=== PATIENT | female | born 1945 | race Caucasian/White ===

== ENCOUNTER 2022-08-17 11:29 | Observation (INO) | payer MEDICARE ==
--- NOTE | 2022-08-17 11:53 | ED ---
General Adult HPI - General Chief complaint: Syncope Stated complaint: Doc sent in- heart issue/testing Time Seen by Provider: 08/17/22 11:38 Source: patient, RN/MD (Case was discussed with Dr. Warren prior to arrival), RN notes reviewed Mode of arrival: ambulatory Limitations: no limitations - History of Present Illness Initial comments: Patient is a pleasant 77-year-old female presenting to the emergency department with concerns for palpitations and syncopal episodes are lasting for episode was 2 days ago. Patient has had 3-4 episodes in the past couple of weeks. Patient does get associated palpitations with this as well as other times. Currently patient is symptom-free. No chest pain. No dyspnea. No abdominal or back pain. No history of similar symptoms previously. Patient did have recent negative stress test. Case was discussed with Dr. Warren who is still concern regarding her symptoms and feels patient needs further cardiac evaluation, possibly heart catheterization - Related Data Home Medications Medication Instructions Recorded Confirmed Atorvastatin Calcium 20 mg PO DAILY 08/17/22 08/17/22 Valsartan [Diovan] 320 mg PO DAILY 08/17/22 08/17/22 amLODIPine [Norvasc] 10 mg PO HS 08/17/22 08/17/22 cloNIDine HCL [Catapres] 0.1 mg PO Q6H PRN 08/17/22 08/17/22 Allergies Allergy/AdvReac Type Severity Reaction Status Date / Time No Known Allergies Allergy Verified 08/17/22 13:42 Review of Systems ROS Statement: Those systems with pertinent positive or pertinent negative responses have been documented in the HPI. ROS Other: All systems not noted in ROS Statement are negative. Constitutional: Denies: fever Eyes: Denies: eye pain ENT: Denies: ear pain Respiratory: Denies: cough, dyspnea Cardiovascular: Reports: as per HPI, palpitations, syncope Endocrine: Denies: fatigue Gastrointestinal: Denies: abdominal pain Genitourinary: Denies: dysuria Musculoskeletal: Denies: back pain Skin: Denies: rash Neurological: Denies: headache, weakness, confusion Past Medical History Past Medical History: Hyperlipidemia, Hypertension History of Any Multi-Drug Resistant Organisms: None Reported Past Surgical History: No Surgical Hx Reported Past Psychological History: No Psychological Hx Reported Smoking Status: Never smoker Past Alcohol Use History: None Reported Past Drug Use History: None Reported General Exam Limitations: no limitations General appearance: alert, in no apparent distress Head exam: Present: atraumatic, normocephalic Eye exam: Present: normal appearance, PERRL, EOMI ENT exam: Present: normal oropharynx Neck exam: Present: normal inspection Respiratory exam: Present: normal lung sounds bilaterally Cardiovascular Exam: Present: regular rate, normal rhythm, normal heart sounds Expanded Peripheral pulses: 2+: Radial (R), Radial (L), Dorsalis Pedis (R), Dorsalis Pedis (L) GI/Abdominal exam: Present: soft. Absent: tenderness, pulsatile mass Extremities exam: Present: normal inspection. Absent: pedal edema, calf tenderness Neurological exam: Present: alert, oriented X3, CN II-XII intact. Absent: motor sensory deficit Expanded Neurological exam: Present: protecting the airway Speech: Present: fluid speech Cranial nerves: EOM's Intact: Normal Motor strength exam: RUE: 5, LUE: 5, RLE: 5, LLE: 5 Eye Response: (4) open spontaneously Motor Response: (6) obeys commands Verbal Response: (5) oriented Psychiatric exam: Present: normal affect, normal mood Skin exam: Present: normal color Course Vital Signs 08/17/22 11:34 Temperature 97.6 F Pulse Rate 60 Respiratory 20 Rate Blood Pressure 143/87 O2 Sat by Pulse 99 Oximetry EKG Findings - EKG Results: EKG: interpreted by ERMD (Septal Q waves. LVH with repolarization change.), sinus rhythm, normal axis EKG shows: bradycardia Medical Decision Making - Medical Decision Making Was pt. sent in by a medical professional or institution (, PA, [employer], urgent care, hospital, or care home...) When possible be specific @ -Patient was sent in by Dr. Warren who is familiar with this patient and did call prior to arrival. Did you speak to anyone other than the patient for history (EMS, parent, family, police, friend...)? What history was obtained from this source @ -Dr. Warren did provide history including recent testing Did you review nursing and triage notes (agree or disagree)? Why? @ -I reviewed and agree with nursing and triage notes Were old charts reviewed (outside hosp., previous admission, EMS record, old EKG, old radiological studies, urgent care reports/EKG's, care home records)? Report findings @ -No old charts were reviewed Differential Diagnosis (chest pain, altered mental status, abdominal pain women, abdominal pain men, vaginal bleeding, weakness, fever, dyspnea, syncope, headac he, dizziness, GI bleed, back pain, seizure, CVA, palpatations, mental health)? @ -Differential Syncope: Valvular disease, hypertrophic cardiomyopathy, pulmonary embolism, tamponade, tachycardia, bradycardia, MS, hypovolemia, hemorrhage, dissection, anemia, intracranial hemorrhage, seizure, hypoglycemia, carbon monoxide poisoning, this is not meant to be an all-inclusive list. EKG interpreted by me (3pts min.). @ -As above X-rays interpreted by me (1pt min.). @ -Chest x-ray shows scoliosis. Borderline cardiomegaly CT interpreted by me (1pt min.). @ -None done U/S interpreted by me (1pt. min.). @ -None done What testing was considered but not performed or refused? (CT, X-rays, U/S, labs)? Why? @ -None What meds were considered but not given or refused? Why? @ -None Did you discuss the management of the patient with other professionals (professionals i.e. , PA, [employer], lab, RT, psych nurse, social media senior associate, supervisor pairing and inspecting, teacher, community resource officer, director of casework services)? Give summary @ -Case was discussed with Dr. Warren who does want his patient admitted with cardiology consult Was smoking cessation discussed for >3mins.? @ -No Was critical care preformed (if so, how long)? @ -No Were there social determinants of health that impacted care today? How? (Homelessness, low income, unemployed, alcoholism, drug addiction, tr ansportation, low edu. Level, literacy, decrease access to med. care, [facility], rehab)? @ -No Was there de-escalation of care discussed even if they declined (Discuss DNR or withdrawal of care, Hospice)? DNR status @ -No What co-morbidities impacted this encounter? (DM, HTN, Smoking, COPD, CAD, Cancer, CVA, ARF, Chemo, Hep., AIDS, mental health diagnosis, sleep apnea, morbid obesity)? @ -None Was patient admitted / discharged? Hospital course, mention meds given and route, prescriptions, significant lab abnormalities, going to OR and other pertinent info. @ -Patient reevaluated and updated. Patient is made aware of plan of admission and cardiac consult. Undiagnosed new problem with uncertain prognosis? @ -No Drug Therapy requiring intensive monitoring for toxicity (Heparin, Nitro, Insulin, Cardizem)? @ -No Were any procedures done? @ -No Diagnosis/symptom? @ -Recurrent syncope Acute, or Chronic, or Acute on Chronic? @ -Acute Uncomplicated (without systemic symptoms) or Complicated (systemic symptoms)? @ -default Side effects of treatment? @ -No Exacerbation, Progression, or Severe Exacerbation? @ -No Poses a threat to life or bodily function? How? (Chest pain, USA, MS, pneumonia, PE, COPD, DKA, ARF, appy, cholecystitis, CVA, Diverticulitis, Homicidal, Suicidal, threat to staff... and all critical care pts) @ -No - Lab Data Result diagrams: 08/17/22 12:29 08/17/22 12:29 Lab Results 08/17/22 08/17/22 08/17/22 Range/Units 12:29 12:29 12:29 WBC 5.9 (3.8-10.6) k/uL RBC 4.62 (3.80-5.40) m/uL Hgb 14.4 (11.4-16.0) gm/dL Hct 41.5 (34.0-46.0) % MCV 89.8 (80.0-100.0) fL MCH 31.2 (25.0-35.0) pg MCHC 34.7 (31.0-37.0) g/dL RDW 12.5 (11.5-15.5) % Plt Count 217 (150-450) k/uL MPV 9.3 Neutrophils % 70 % Lymphocytes % 22 % Monocytes % 6 % Eosinophils % 0 % Basophils % 0 % Neutrophils # 4.1 (1.3-7.7) k/uL Lymphocytes # 1.3 (1.0-4.8) k/uL Monocytes # 0.4 (0-1.0) k/uL Eosinophils # 0.0 (0-0.7) k/uL Basophils # 0.0 (0-0.2) k/uL PT 10.5 (9.0-12.0) sec INR 1.0 (<1.2) APTT 23.2 (22.0-30.0) sec D-Dimer 0.26 (<0.60) mg/L FEU Sodium 137 (137-145) mmol/L Potassium 4.3 (3.5-5.1) mmol/L Chloride 97 L (98-107) mmol/L Carbon Dioxide 28 (22-30) mmol/L Anion Gap 12 mmol/L BUN 23 H (7-17) mg/dL Creatinine 1.06 H (0.52-1.04) mg/dL Est GFR (CKD-EPI)AfAm 58 (>60 ml/min/1.73 sqM) Est GFR (CKD-EPI)NonAf 51 (>60 ml/min/1.73 sqM) Glucose 109 H (74-99) mg/dL Calcium 10.0 (8.4-10.2) mg/dL Magnesium 1.9 (1.6-2.3) mg/dL Total Bilirubin 0.6 (0.2-1.3) mg/dL AST 36 (14-36) U/L ALT 44 H (4-34) U/L Alkaline Phosphatase 92 (38-126) U/L Troponin I (0.000-0.034) ng/mL Total Protein 8.0 (6.3-8.2) g/dL Albumin 4.8 (3.5-5.0) g/dL TSH 2.620 (0.465-4.680) mIU/L Free T4 1.15 (0.78-2.19) ng/dL Free T3 pg/mL 4.3 (2.8-5.3) pg/ml 08/17/22 Range/Units 12:29 WBC (3.8-10.6) k/uL RBC (3.80-5.40) m/uL Hgb (11.4-16.0) gm/dL Hct (34.0-46.0) % MCV (80.0-100.0) fL MCH (25.0-35.0) pg MCHC (31.0-37.0) g/dL RDW (11.5-15.5) % Plt Count (150-450) k/uL MPV Neutrophils % % Lymphocytes % % Monocytes % % Eosinophils % % Basophils % % Neutrophils # (1.3-7.7) k/uL Lymphocytes # (1.0-4.8) k/uL Monocytes # (0-1.0) k/uL Eosinophils # (0-0.7) k/uL Basophils # (0-0.2) k/uL PT (9.0-12.0) sec INR (<1.2) APTT (22.0-30.0) sec D-Dimer (<0.60) mg/L FEU Sodium (137-145) mmol/L Potassium (3.5-5.1) mmol/L Chloride (98-107) mmol/L Carbon Dioxide (22-30) mmol/L Anion Gap mmol/L BUN (7-17) mg/dL Creatinine (0.52-1.04) mg/dL Est GFR (CKD-EPI)AfAm (>60 ml/min/1.73 sqM) Est GFR (CKD-EPI)NonAf (>60 ml/min/1.73 sqM) Glucose (74-99) mg/dL Calcium (8.4-10.2) mg/dL Magnesium (1.6-2.3) mg/dL Total Bilirubin (0.2-1.3) mg/dL AST (14-36) U/L ALT (4-34) U/L Alkaline Phosphatase (38-126) U/L Troponin I <0.012 (0.000-0.034) ng/mL Total Protein (6.3-8.2) g/dL Albumin (3.5-5.0) g/dL TSH (0.465-4.680) mIU/L Free T4 (0.78-2.19) ng/dL Free T3 pg/mL (2.8-5.3) pg/ml Disposition Clinical Impression: Syncope Disposition: ADMITTED IP TO THIS [facility] Is patient prescribed a controlled substance at d/c from ED?: No Referrals: Yamila Warren MD [Primary Care Provider] - 1-2 days Time of Disposition: 13:59
--- NOTE | 2022-08-17 12:47 | XR ---
EXAMINATION TYPE: XR chest 2V DATE OF EXAM: 08/17/2022 COMPARISON: None HISTORY: 77-year-old female syncope TECHNIQUE: PA and lateral views FINDINGS: Heart borderline enlarged. Aorta and pulmonary vasculature within normal limits. Focal levoconvex sco liosis upper third thoracic spine. Hyperinflation. No consolidation or pleural effusion. IMPRESSION: COPD. Borderline cardiomegaly. Levoconvex scoliosis upper thoracic spine. No acute process seen.
[2022-08-17 12:55] LABS: Partial Thromboplastin Time 23.2 sec (22.0-30.0); Prothrombin Time 10.5 sec (9.0-12.0)
[2022-08-17 13:00] LABS: Basophils % (A) 0 %; Eosinophils % (A) 0 %; HCT 41.5 % (34.0-46.0); HGB 14.4 gm/dL (11.4-16.0); Lymphocytes # (A) 1.3 k/uL (1.0-4.8); Lymphocytes % (A) 22 %; MCH 31.2 pg (25.0-35.0); MCHC 34.7 g/dL (31.0-37.0); MCV 89.8 fL (80.0-100.0); Mean Platelet Volume 9.3; Monocytes # (A) 0.4 k/uL (0-1.0); Monocytes % (A) 6 %; Neutrophils # (A) 4.1 k/uL (1.3-7.7); Neutrophils % (A) 70 %; Platelet Count 217 k/uL (150-450); RBC 4.62 m/uL (3.80-5.40); RDW 12.5 % (11.5-15.5); WBC 5.9 k/uL (3.8-10.6)
[2022-08-17 13:08] LABS: Albumin 4.8 g/dL (3.5-5.0); Magnesium 1.9 mg/dL (1.6-2.3); Potassium 4.3 mmol/L (3.5-5.1); Total Bilirubin 0.6 mg/dL (0.2-1.3)
[2022-08-17 13:25] LABS: T4, Free (Free Thyroxine) 1.15 ng/dL (0.78-2.19)
[2022-08-17] MEDS ORDERED: NALOXONE 0.4 MG/ML 1 ML VIAL IV PRN (14:01)
--- NOTE | 2022-08-17 20:16 | US ---
EXAMINATION TYPE: US carotid duplex BILAT DATE OF EXAM: 08/17/2022 COMPARISON: NONE CLINICAL INDICATION: Female, 77 years old with history of syncope; syncope TECHNIQUE: Carotid duplex ultrasound examination. Indirect Doppler criteria was utilized. FINDINGS: EXAM MEASUREMENTS: RIGHT: Peak Systolic Velocity (PSV) cm/sec ----- Right CCA: 80.8 ----- Right ICA: 123.8 ----- Right ECA: 131.7 ICA/CCA ratio: 1.5 RIGHT: End Diastole cm/sec ----- Right CCA: 11.0 ----- Right ICA: 22.0 ----- Right ECA: 0.0 LEFT: Peak Systolic Velocity (PSV) cm/sec ----- Left CCA: 66.9 ----- Left ICA: 83.2 ----- Left ECA: 97.7 ICA/CCA ratio: 1.2 LEFT: End Diastole cm/sec ----- Left CCA: 14.0 ----- Left ICA: 21.0 ----- Left ECA: 0.0 VERTEBRALS (direction of flow): Right Vertebral: Antegrade Left Vertebral: Antegrade Rhythm: Normal AUDITOR/QUALITY NOTES: Mild plaque seen in bilateral bulbs IMPRESSION: Less than 50% stenosis of the bilateral carotid bifurcations. Criteria for Assigning % of Stenosis / Diameter reduction (Estimation based on the indirect measurements of the internal carotid artery velocities (ICA PSV). 1. Normal (no stenosis)=ICA PSV < 125 cm/s: ratio < 2.0: ICA EDV<40 cm/s. 2. Less than 50% stenosis=ICA PSV < 125 cm/s: ratio < 2.0: ICA EDV<40 cm/s. 3. 50 to 69% stenosis=ICA PSV of 125 to 230 cm/s: ration 2.0 ? 4.0: ICA EDV 40-100 cm/s. 4. Greater than 70% stenosis to near occlusion= ICA PSV > 230 cm/s: ratio > 4.0: ICA EDV > 100 cm/s. 5. Near occlusion= ICA PSV velocities may be low or undetectable: variable ratio and ICA EDV. 6. Total occlusion=unable to detect flow.
[2022-08-17] MEDS ORDERED: amLODIPine 10 MG TAB PO SCH (21:00)
[2022-08-17] MEDS ORDERED: ATORVASTATIN 20 MG TAB PO SCH (21:00)
--- NOTE | 2022-08-18 07:36 | CA ---
Transthoracic Echo Report Name: Soniya Calderon Age: 77 Gender: F : 1945 Exam Date: 08/17/2022 16:20 Exam Location: [place] [facility] Ht (in): 64 Wt (lb): 131 Ordering Physician: Shane Davis DO Attending/Referring Phys: Draw Hand Abena Flores RDCS Procedure CPT: Indications: Syncope Cardiac Hx: Technical Quality: Excellent Contrast 1: Total Dose (mL): Contrast 2: Total Dose (mL): MEASUREMENTS (Male / Female) Normal Values 2D ECHO LV Diastolic Diameter PLAX 3.9 cm 4.2 - 5.9 / 3.9 - 5.3 cm LV Systolic Diameter PLAX 2.4 cm IVS Diastolic Thickness 1.2 cm 0.6 - 1.0 / 0.6 - 0.9 cm LVPW Diastolic Thickness 1.0 cm 0.6 - 1.0 / 0.6 - 0.9 cm LV Relative Wall Thickness 0.6 RV Internal Dim ED PLAX 3.4 cm LA Systolic Diameter LX 2.9 cm 3.0 - 4.0 / 2.7 - 3.8 cm LA Volume 39.5 cm??? 18 - 58 / 22 - 52 cm??? M-MODE Aortic Root Diameter MM 3.1 cm MV E Point Septal Separation 0.3 cm AV Cusp Separation MM 2.0 cm DOPPLER AV Peak Velocity 126.1 cm/s AV Peak Gradient 6.4 mmHg AI Peak Velocity 444.5 cm/s AI Peak Gradient 79.0 mmHg AI Pressure Half Time 803.5 ms MV Area PHT 3.9 cm??? Mitral E Point Velocity 78.7 cm/s Mitral A Point Velocity 60.8 cm/s Mitral E to A Ratio 1.3 MV Deceleration Time 193.9 ms MV E' Velocity 7.3 cm/s Mitral E to MV E' Ratio 10.7 TR Peak Velocity 257.4 cm/s TR Peak Gradient 26.5 mmHg Right Ventricular Systolic Press 30.9 mmHg FINDINGS Left Ventricle Left ventricular ejection fraction is estimated at 55-60 %. Left ventricular cavity size normal. Mildly increased septal wall thickness. Mildly increased posterior wall thickness. Right Ventricle Mild right ventricular dilatation. Right ventricular systolic pressure within normal limits. Right ventricular systolic pressure estimated at 31 mm hg. Right Atrium Normal right atrial size. Left Atrium Normal left atrial size. Mitral Valve Structurally normal mitral valve. Mild mitral regurgitation. Aortic Valve Trileaflet aortic valve. Mild aortic regurgitation. Tricuspid Valve Structurally normal tricuspid valve. Moderate tricuspid regurgitation. Pulmonic Valve Structurally normal pulmonic valve. Trace pulmonic regurgitation. Pericardium Normal pericardium. No pericardial effusion. Aorta Normal size aortic root and proximal ascending aorta. CONCLUSIONS 1. Normal left ventricular size and systolic function 2. Mild mitral and aortic regurgitation 3. Moderate tricuspid regurgitation with normal right ventricular systolic pressure Previewed by: Dr. Rosa Coyle MD (Electronically Signed) Final Date: 18 Aug 2022 07:34
[2022-08-18] MEDS ORDERED: DOBUTamine DRIP for NUC MED 500 MG in DEXTROSE/WATER 1 250ML.BAG IV PRN (08:30)
[2022-08-18] MEDS ORDERED: VALSARTAN 160 MG TAB PO SCH (09:00)
[2022-08-18] MEDS ORDERED: CHLORTHALIDONE 25 MG TAB PO SCH (09:00)
[2022-08-18] MEDS ORDERED: atenoloL 25 MG TAB PO SCH (09:00)
[2022-08-18] MEDS ORDERED: NON FORMULARY DRUG (Atenolol/Chlorthalidone [Atenolol/Chlorthalidone 50-25] 1 EACH Tablet) PO SCH (09:00)
[2022-08-18] MEDS ORDERED: ASPIRIN 81 MG PO SCH (09:00)
[2022-08-18 09:07] LABS: Basophils # (A) 0.03 X 10*3/uL (0.00-0.10); Basophils % (A) 0.6 %; Eosinophils # (A) 0.13 X 10*3/uL (0.04-0.35); Eosinophils % (A) 2.8 %; HCT 37.5 % (37.2-46.3); HGB 12.7 g/dL (12.0-15.0); Immature Grans, Automated 0 %; Lymphocytes % (A) 40.3 %; MCH 30.8 pg (27.0-32.0); MCHC 33.9 g/dL (32.0-37.0); MCV 90.8 fL (80.0-97.0); Mean Platelet Volume 10.7 fL (9.5-12.2); Monocytes # (A) 0.67 X 10*3/uL (0.20-1.00); Monocytes % (A) 14.2 %; NRBC Per 100 WBC 0 /100 WBCS (0.0-0.0); Neutrophils # (A) 1.98 X 10*3/uL (1.80-7.70); Neutrophils % (A) 42.1 %; Platelet Count 202 X 10*3/uL (140-440); RBC 4.13 X 10*6/uL (4.10-5.20); RDW 12.2 % (11.5-14.5); WBC 4.71 X 10*3/uL (4.50-10.00)
[2022-08-18 10:01] LABS: African American GFR (CKD) 62.5 (60.0-200.0); Albumin 4.1 g/dL (3.8-4.9); Albumin/Globulin Ratio 1.95 (1.60-3.17); Anion Gap 11.1 mmol/L (10.00-18.00); Calcium 9.7 mg/dL (8.7-10.3); Carbon Dioxide 25.9 mmol/L (20.0-27.5); Globulin 2.1 g/dL (1.6-3.3); Non-African American GFR(CKD) 53.9 (60.0-200.0); Total Bilirubin 0.3 mg/dL (0.30-1.20); Total Protein 6.2 g/dL (6.2-8.2)
[2022-08-18] MEDS: CHOLECALCIFEROL 25 MCG (1000 IU) TABLET PO SCH ×2 (10:28→10:30)
--- NOTE | 2022-08-18 10:35 | P.CRDCN ---
History of Present Illness Consult date: 08/18/22 Requesting physician: Yamila Warren Reason for Consult (text): syncope Chief complaint: syncope History of present illness: This is a pleasant 77-year-old female patient who does not follow with ca rdiologist. She has a history of hypertension and hyperlipidemia. She did have cardiac workup including echocardiogram and stress test done at [facility] early last year that were apparently unremarkable. She presents to the hospital as advised by her primary care physician. In June she had 2 episodes of passing out while seated. One episode was witnessed and lasted about 30 seconds. She denies any symptoms prior to the events and denies any loss of bowel or bladder confusion after coming to. She had another episode a few days ago that was brief and similar to the episodes in June. She went to see her primary care physician who recommended she come to the emergency department for further evaluation. Echocardiogram with Doppler study showed normal LV systolic function with mild MR, mild AI and moderate TR. Troponins have been negative 3. Carotid duplex study showed less than 50% stenosis bilaterally. Vital signs have been stable. Past Medical History Past Medical History: Cancer, Hyperlipidemia, Hypertension Additional Past Medical History / Comment(s): Colon cancer. History of Any Multi-Drug Resistant Organisms: None Reported Past Surgical History: Bowel Resection Past Anesthesia/Blood Transfusion Reactions: No Reported Reaction Past Psychological History: No Psychological Hx Reported Smoking Status: Never smoker Past Alcohol Use History: None Reported Past Drug Use History: None Reported Medications and Allergies Home Medications Medication Instructions Recorded Confirmed Type Aspirin 81 mg PO DAILY 08/17/22 08/17/22 History Atenolol/Chlorthalidone 0.5 each PO DAILY 08/17/22 08/17/22 History [Atenolol/Chlorthalidone 50-25] Atorvastatin Calcium 20 mg PO HS 08/17/22 08/17/22 History Cholecalciferol [Vitamin D3 (25 100 mcg PO DAILY 08/17/22 08/17/22 History Mcg = 1000 Iu)] Multivitamin [Multivitamins Adult 08/17/22 History Gummies] Valsartan [Diovan] 320 mg PO DAILY 08/17/22 08/17/22 History Allergies Allergy/AdvReac Type Severity Reaction Status Date / Time No Known Allergies Allergy Verified 08/17/22 13:42 Physical Exam Vitals: Vital Signs Temp Pulse Pulse Pulse Pulse Pulse Resp 08/18/22 07:00 98.0 F 61 16 08/18/22 02:00 98.3 F 63 15 08/17/22 20:00 98.1 F 64 67 60 17 08/17/22 18:27 78 18 08/17/22 16:00 58 L 18 08/17/22 15:00 56 L 18 08/17/22 11:34 97.6 F 60 20 BP BP BP BP BP Pulse Ox 08/18/22 07:00 122/63 100 08/18/22 02:00 132/71 99 08/17/22 20:00 135/73 118/69 157/70 99 08/17/22 18:27 140/84 99 08/17/22 16:00 145/68 99 08/17/22 15:00 142/118 98 08/17/22 11:34 143/87 99 Intake and Output 08/17/22 08/18/22 08/18/22 22:59 06:59 14:59 Intake Total 0 Balance 0 Intake: Oral 0 Other: Voiding Method Toilet # Voids 1 2 Weight 59.421 kg Results 08/18/22 05:47 08/18/22 05:47 Cardiac Enzymes 08/17/22 08/17/22 08/17/22 Range/Units 12:29 12:29 16:03 AST 36 (14-36) U/L Troponin I <0.012 <0.012 (0.000-0.034) ng/mL 08/17/22 08/18/22 Range/Units 20:31 05:47 AST 24 (14-36) U/L Troponin I <0.012 (0.000-0.034) ng/mL Coagulation 08/17/22 Range/Units 12:29 PT 10.5 (9.0-12.0) sec APTT 23.2 (22.0-30.0) sec CBC 08/17/22 08/18/22 Range/Units 12:29 05:47 WBC 5.9 4.71 (3.8-10.6) k/uL RBC 4.62 4.13 (3.80-5.40) m/uL Hgb 14.4 12.7 (11.4-16.0) gm/dL Hct 41.5 37.5 (34.0-46.0) % Plt Count 217 202 (150-450) k/uL Comprehensive Metabolic Panel 08/17/22 08/18/22 Range/Units 12:29 05:47 Sodium 137 139 (137-145) mmol/L Potassium 4.3 4.0 (3.5-5.1) mmol/L Chloride 97 L 102 (98-107) mmol/L Carbon Dioxide 28 25.9 (22-30) mmol/L BUN 23 H 22.0 (7-17) mg/dL Creatinine 1.06 H 1.0 (0.52-1.04) mg/dL Glucose 109 H 100 (74-99) mg/dL Calcium 10.0 9.7 (8.4-10.2) mg/dL AST 36 24 (14-36) U/L ALT 44 H 34 (4-34) U/L Alkaline Phosphatase 92 77 (38-126) U/L Total Protein 8.0 6.2 (6.3-8.2) g/dL Albumin 4.8 4.1 (3.5-5.0) g/dL Current Medications Generic Name Dose Route Start Last Admin Trade Name Freq PRN Reason Stop Dose Admin Amlodipine Besylate 10 mg 08/17/22 21:00 08/17/22 21:44 Amlodipine 10 Mg Tab PO 10 mg HS LUBA Administration Aspirin 81 mg 08/18/22 09:00 Aspirin 81 Mg PO DAILY [facility] Atenolol 25 mg 08/18/22 09:00 Atenolol 25 Mg Tab PO DAILY [facility] Atorvastatin Calcium 20 mg 08/17/22 21:00 08/17/22 20:38 Atorvastatin 20 Mg Tab PO 20 mg HS LUBA Administration Chlorthalidone 12.5 mg 08/18/22 09:00 Chlorthalidone 25 Mg Tab PO DAILY [facility] Cholecalciferol 100 mcg 08/18/22 09:00 Cholecalciferol 25 Mcg (1000 Iu) Tablet PO DAILY [facility] Naloxone HCl 0.2 mg 08/17/22 14:01 Naloxone 0.4 Mg/Ml 1 Ml Vial IV Q2M PRN Opioid Reversal Valsartan 160 mg 08/18/22 09:00 Valsartan 160 Mg Tab PO DAILY [facility] Intake and Output 08/17/22 08/18/22 08/18/22 22:59 06:59 14:59 Intake Total 0 Balance 0 Intake: Oral 0 Other: Voiding Method Toilet # Voids 1 2 Weight 59.421 kg 08/18/22 05:47 08/18/22 05:47
--- NOTE | 2022-08-18 11:29 | P.CRDCN ---
History of Present Illness Consult date: 08/18/22 Requesting physician: Berhane E Ilir Reason for Consult (text): syncope Chief complaint: syncope History of present illness: This is a pleasant 77-year-old female patient who does not follow with a forensic technician. She has a history of hypertension and hyperlipidemia. He denies a history of diabetes and has no documented CAD. She did have cardiac workup including a stress test and echocardiogram done at [facility] early last year that were according to her unremarkable. She presents to the hospital as advised by her primary care physician. In June she had 2 episodes of passing out while seated. One episode was witnessed and lasted about 30 seconds. She denies any symptoms prior to the events and denies any loss of bowel or bladder control or confusion after coming to. She had another episode a few days ago that was brief and similar to the episodes in June. She went to see her primary care physician who recommended she come to the emergency department for further evaluation. Echocardiogram with Doppler study showed normal LV systolic function with mild MR, mild AI and moderate TR. Troponins have been negative 3. EKG shows sinus mechanism with possible prior [place] and possible LVH but no signs of acute ischemia. There's been no significant bradycardia or tachyarrhythmias noted on telemetry. Carotid duplex study showed less than 50% stenosis bilaterally. Vital signs have been stable. She's had no complaints of shortness of breath or chest discomfort. She walked up and down 6 flights of stairs on Monday without difficulty. She's had no orthopnea or PND. She does have occasional palpitations that are occurring every few months and not correlating with her episodes of syncope. Past Medical History Past Medical History: Cancer, Hyperlipidemia, Hypertension Additional Past Medical History / Comment(s): Colon cancer. History of Any Multi-Drug Resistant Organisms: None Reported Past Surgical History: Bowel Resection Past Anesthesia/Blood Transfusion Reactions: No Reported Reaction Past Psychological History: No Psychological Hx Reported Smoking Status: Never smoker Past Alcohol Use History: None Reported Past Drug Use History: None Reported Medications and Allergies Home Medications Medication Instructions Recorded Confirmed Type Aspirin 81 mg PO DAILY 08/17/22 08/17/22 History Atenolol/Chlorthalidone 0.5 each PO DAILY 08/17/22 08/17/22 History [Atenolol/Chlorthalidone 50-25] Atorvastatin Calcium 20 mg PO HS 08/17/22 08/17/22 History Cholecalciferol [Vitamin D3 (25 100 mcg PO DAILY 08/17/22 08/17/22 History Mcg = 1000 Iu)] Multivitamin [Multivitamins Adult 08/17/22 History Gummies] Valsartan [Diovan] 320 mg PO DAILY 08/17/22 08/17/22 History Allergies Allergy/AdvReac Type Severity Reaction Status Date / Time No Known Allergies Allergy Verified 08/17/22 13:42 Physical Exam Vitals: Vital Signs Temp Pulse Pulse Pulse Pulse Pulse Resp 08/18/22 07:00 98.0 F 61 16 08/18/22 02:00 98.3 F 63 15 08/17/22 20:00 98.1 F 64 67 60 17 08/17/22 18:27 78 18 08/17/22 16:00 58 L 18 08/17/22 15:00 56 L 18 08/17/22 11:34 97.6 F 60 20 BP BP BP BP BP Pulse Ox 08/18/22 07:00 122/63 100 08/18/22 02:00 132/71 99 08/17/22 20:00 135/73 118/69 157/70 99 08/17/22 18:27 140/84 99 08/17/22 16:00 145/68 99 08/17/22 15:00 142/118 98 08/17/22 11:34 143/87 99 Intake and Output 08/17/22 08/18/22 08/18/22 22:59 06:59 14:59 Intake Total 0 Balance 0 Intake: Oral 0 Other: Voiding Method Toilet # Voids 1 2 Weight 59.421 kg PHYSICAL EXAMINATION: This is a 77-year-old female in no apparent distress at the time of my examination. HEENT: Head is atraumatic, normocephalic. Pupils are equal, round. Sclerae anicteric. Conjunctivae are clear. Mucous membranes of the mouth are moist. Neck is supple. There is no elevated jugular venous pressure. No carotid bruit is heard. CHEST EXAMINATION: Clear to auscultation bilaterally. No wheezes rales or rhonchi. Respirations even and nonlabored. HEART EXAMINATION: Heart regular, positive S1 and S2. No S3. No S4. With a soft systolic murmur. ABDOMEN: Soft, nontender. Bowel sounds are heard. No organomegaly noted. EXTREMITIES: 2+ peripheral pulses with no evidence of peripheral edema and no calf tenderness noted. NEUROLOGIC EXAMINATION: Patient is awake, alert and oriented x3. Results 08/18/22 05:47 08/18/22 05:47 Cardiac Enzymes 08/17/22 08/17/22 08/17/22 Range/Units 12:29 12:29 16:03 AST 36 (14-36) U/L Troponin I <0.012 <0.012 (0.000-0.034) ng/mL 08/17/22 08/18/22 Range/Units 20:31 05:47 AST 24 (14-36) U/L Troponin I <0.012 (0.000-0.034) ng/mL Coagulation 08/17/22 Range/Units 12:29 PT 10.5 (9.0-12.0) sec APTT 23.2 (22.0-30.0) sec CBC 08/17/22 08/18/22 Range/Units 12:29 05:47 WBC 5.9 4.71 (3.8-10.6) k/uL RBC 4.62 4.13 (3.80-5.40) m/uL Hgb 14.4 12.7 (11.4-16.0) gm/dL Hct 41.5 37.5 (34.0-46.0) % Plt Count 217 202 (150-450) k/uL Comprehensive Metabolic Panel 08/17/22 08/18/22 Range/Units 12:29 05:47 Sodium 137 139 (137-145) mmol/L Potassium 4.3 4.0 (3.5-5.1) mmol/L Chloride 97 L 102 (98-107) mmol/L Carbon Dioxide 28 25.9 (22-30) mmol/L BUN 23 H 22.0 (7-17) mg/dL Creatinine 1.06 H 1.0 (0.52-1.04) mg/dL Glucose 109 H 100 (74-99) mg/dL Calcium 10.0 9.7 (8.4-10.2) mg/dL AST 36 24 (14-36) U/L ALT 44 H 34 (4-34) U/L Alkaline Phosphatase 92 77 (38-126) U/L Total Protein 8.0 6.2 (6.3-8.2) g/dL Albumin 4.8 4.1 (3.5-5.0) g/dL Current Medications Generic Name Dose Route Start Last Admin Trade Name Jm PRN Reason Stop Dose Admin Amlodipine Besylate 10 mg 08/17/22 21:00 08/17/22 21:44 Amlodipine 10 Mg Tab PO 10 mg HS LUBA Administration Aspirin 81 mg 08/18/22 09:00 08/18/22 10:28 Aspirin 81 Mg PO 81 mg DAILY LUBA Administration Atenolol 25 mg 08/18/22 09:00 Atenolol 25 Mg Tab PO DAILY LUBA Atorvastatin Calcium 20 mg 08/17/22 21:00 08/17/22 20:38 Atorvastatin 20 Mg Tab PO 20 mg HS LUBA Administration Chlorthalidone 12.5 mg 08/18/22 09:00 Chlorthalidone 25 Mg Tab PO DAILY LUBA Cholecalciferol 100 mcg 08/18/22 09:00 08/18/22 10:30 Cholecalciferol 25 Mcg (1000 Iu) Tablet PO 100 mcg DAILY LUBA Administration Naloxone HCl 0.2 mg 08/17/22 14:01 Naloxone 0.4 Mg/Ml 1 Ml Vial IV Q2M PRN Opioid Reversal Valsartan 160 mg 08/18/22 09:00 08/18/22 10:28 Valsartan 160 Mg Tab PO 160 mg DAILY LUBA Administration Intake and Output 08/17/22 08/18/22 08/18/22 22:59 06:59 14:59 Intake Total 0 Balance 0 Intake: Oral 0 Other: Voiding Method Toilet # Voids 1 2 Weight 59.421 kg 08/18/22 05:47 08/18/22 05:47 Assessment and Plan Assessment: #1 syncope of unclear etiology #2 hypertension #3 hyperlipidemia Plan: From cardiology's perspective will schedule patient for a stress echocardiogram. If there is no evidence of ischemia on the stress echo patient may be discharged home and follow-up in the office at which time we will likely schedule her for an event monitor. Further recommendations to follow. TOOL MAKER APPRENTICE note has been reviewed, I agree with a documented findings and plan of care. Patient was seen and examined.
--- NOTE | 2022-08-18 12:18 | CA ---
Stress Echo Report Soniya Calderon Age: 77 Gender: F : 1945 Exam Date: 08/18/2022 11:16 Exam Location: [facility] Ht (in): 64 Wt (lb): 131 Ordering Physician: Raven Pineda Referring Physician: [id number] Chun General Operator: Tammy Hazel RDCS Technologist Procedure CPT: Indication: Syncope ICD-9 Codes: Rhythm: Patient History: Dyspnea/SOB Cardiac Medications: Medications in past 24 hours: Contrast: Stress Results Protocol: Fausto Total dose(mL): Exercise Duration (min:sec): [address] Depression (mm): Angina Score: Arroyo Score: METS: 7.1 Resting HR: 81 Resting BP: 159 / 66 Peak HR: 127 Peak BP: 202 / 63 Max Predicted HR: 142 89 % Max Predicted HR Target HR: 121 Double Product: [id number] Stress Summary: The patient's target heart rate was achieved BP Response: Normal Reason for Termination: MAX EXERTION/TARGET HR Cardiac Symptoms: NO SYMPTOMS ECG Analysis Resting ECG: Normal sinus rhythm, Resting ST/T wave changes Stress ECG: Non-diagnostic ECG response due to resting abnormalities Arrhythmia: None Echo Analysis Resting Echo: Normal resting echocardiogram. Peak Echo Analysis: Normal wall thickening and motion with decrease in the cavity size MEASUREMENTS (Male/Female) Normal Values CONCLUSIONS 1. Good exercise tolerance with nondiagnostic echocardiographic stress testing secondary to baseline EKG abnormality 2. Normal stress echocardiogram with no evidence of stress induced ischemia Dr. Rosa Coyle MD (Electronically Signed) Final Date: 18 Aug 2022 12:17
[2022-08-18 14:33] VITALS: BP 120/73; PULSE 55; RESP 16; TEMP 97.8
--- NOTE | 2022-08-21 18:12 | P.HPIM ---
History of Present Illness H&P Date: 08/18/22 Chief Complaint: Syncope HISTORY OF PRESENT ILLNESS: This is a 77-year-old female with a previous medical history significant for hypertension and hypertensive cardio vascular disease, hyperlipidemia, history of osteophytes, history of malignant neoplasm of the co luis status post partial colectomy, patient has been recently having some issues with uncontrolled hypertension for which she has been having multiple hospital admissions patient ended up going for battery of testing including a calcium score that was positive for CAD, then underwent myocardial perfusion imaging was negative for stress-induced ischemia however there was a possible balance three-vessel ischemia patient apparently was doing better after adjusting some of her hypertensive medication, came to the office for follow-up, she stated that she had passed out while she was sitting on her chair on Monday that was 2 days prior to her office visit, patient had an EKG did not show evidence of acute of normalities, but because of the presentation I've asked the patient to go to the ER for evaluation by cardiology since there is a possibility of a three-vessel balance ischemia that when her myocardial perfusion imaging was negative, patient was admitted to hospital with cardiology consultation. REVIEW OF SYSTEMS: Constitutional: No documented fever, no chills, no night sweats. No weight change. No weakness, fatigue or lethargy. No daytime sleepiness. HEENT: No headache. No blurred vision or double vision, no loss of vision. No loss of Hearing, no ringing in the ears, no dizziness. No nasal drainage or congestion. No epistaxis. No sore throat. Lungs: positive for shortness of breath, no cough, no sputum production. No wheezing. Reports dyspnea with activity. Cardiovascular: No chest pain, minimal lower extremity edema. No palpitations. No paroxysmal nocturnal dyspnea. No orthopnea. No lightheadedness or dizziness. No syncopal episodes. Abdominal: Reports abdominal pain. No nausea, vomiting. No diarrhea. No constipation. No bloody or tarry stools reports loss of appetite. Genitourinary: No dysuria, increased frequency, urgency. No urinary retention. Musculoskeletal: No myalgias. No muscle weakness, no gait dysfunction, no frequent falls. No back pain. No neck pain. Integumentary: No wounds, no lesions. No rash or pruritus. No unusual brui sing. No change in hair or nails. Neurologic: No aphasia. No facial droop. No change in mentation. No head injury. No headache. No paralysis. No paresthesia.positive for syncope while sitting Psychiatric: No depression. No anxiety. No mood swings. Endocrine: No abnormal blood sugars. No weight change. PAST MEDICAL HISTORY: Hypertension and hypertensive cardiovascular disease. Hyperlipidemia. Malignant neoplasm of the colon. Vitamin D deficiency. Osteoarthritis PAST SURGICAL HISTORY: Sigmoidectomy due to colon cancer. Colonoscopy January 2020 Cataract surgery Left lumpectomy benign SOCIAL HISTORY: Patient is a lifelong nonsmoker, she'll occasionally drinks, she denies any drug use or abuse she lives alone per FAMILY HISTORY: Father at age of 65 from [place], mother at age of 68 from pancreatic cancer, patient had one brother who at the age of 86 from CABG as well as COPD, patient had 4 sisters one at age of 36 from lupus the other one at age of 76 from CAD and the other 2 are fine, patient has 2 sons no major medical problems. PHYSICAL EXAMINATION: General: 77-year-old female laying down in bed in no apparent distress HEENT: Head is atraumatic, normocephalic, pupils were equal round reactive to light and recommendation, extraocular muscle movement were intact, sclera nonicteric, conjunctivae were pale, mucous membranes of the mouth are somewhat dry. Neck: Supple, no JVP, normal carotid upstroke bilaterally, no lymphadenopathy. Chest: Decreased breath sounds at the bases, few rhonchi, no expiratory wheezes, no chest wall tenderness, no intercostal retractions. Heart: First heart sound is normal, second heart sounds normal there is GABBY 2/6 located at the left sternal borders. Abdomen: Soft, nontender, nondistended, positive bowel sounds. Extremities: There is no edema no calf tenderness DP +2 bilaterally. Neurologic examination: Patient is awake alert and oriented X 3, cranial nerves II-12 appear grossly intact, muscle power were 5 out of 5 in upper extremities and 5 out of 5 in bilateral lower extremities, deep tendon reflexes normal bilaterally. ASSESSMENT AND PLAN: 1. Syncope in a patient with uncontrolled hypertension with a myocardial perfusion imaging as an outpatient that was negative for stress-induced ischemia however it did show possibility of a balance ischemia with a slightly elevated TID, rule out cardiac arrhythmia since the patient passed out in the sitting position, patient will be admitted to telemetry unit, patient was seen in consultation by cardiology she is scheduled for dobutamine stress echo, if her stress test is negative she can be discharged home with follow-up with him as an outpatient for a 30 day event monitor. 2. Hypertension and hypertensive cardiovascular disease. Continue patient on valsartan 160 mg once every day, atenolol 50/12.5 mg half a tablet once every day, discontinue amlodipine for now. 3. Mixed hyperlipidemia. Continue atorvastatin 20 mg once every day, monitor lipid panel, keep LDL 55-70. 4. Vitamin D deficiency. Continue patient on vitamin D3 supplement 2000 units once every day. 5. DVT prophylaxis. Lovenox 40 mg subcutaneously every 24 hours. 6. GI prophylaxis. Continue patient on PPI. 7. Observation. 8. Full code. Past Medical History Past Medical History: Cancer, Hyperlipidemia, Hypertension Additional Past Medical History / Comment(s): Colon cancer. History of Any Multi-Drug Resistant Organisms: None Reported Past Surgical History: Bowel Resection Past Anesthesia/Blood Transfusion Reactions: No Reported Reaction Past Psychological History: No Psychological Hx Reported Smoking Status: Never smoker Past Alcohol Use History: None Reported Past Drug Use History: None Reported Medications and Allergies Home Medications Medication Instructions Recorded Confirmed Type Aspirin 81 mg PO DAILY 08/17/22 08/17/22 History Atenolol/Chlorthalidone 0.5 each PO DAILY 08/17/22 08/17/22 History [Atenolol/Chlorthalidone 50-25] Atorvastatin Calcium 20 mg PO HS 08/17/22 08/17/22 History Cholecalciferol [Vitamin D3 (25 100 mcg PO DAILY 08/17/22 08/17/22 History Mcg = 1000 Iu)] Multivitamin [Multivitamins Adult 08/17/22 History Gummies] Valsartan [Diovan] 320 mg PO DAILY 08/17/22 08/17/22 History Allergies Allergy/AdvReac Type Severity Reaction Status Date / Time No Known Allergies Allergy Verified 08/17/22 13:42 Physical Exam Vitals: Vital Signs Temp Pulse Pulse Pulse Pulse Pulse Resp 08/18/22 07:00 98.0 F 61 16 08/18/22 02:00 98.3 F 63 15 08/17/22 20:00 98.1 F 64 67 60 17 08/17/22 18:27 78 18 08/17/22 16:00 58 L 18 08/17/22 15:00 56 L 18 BP BP BP BP BP Pulse Ox 08/18/22 07:00 122/63 100 08/18/22 02:00 132/71 99 08/17/22 20:00 135/73 118/69 157/70 99 08/17/22 18:27 140/84 99 08/17/22 16:00 145/68 99 08/17/22 15:00 142/118 98 Intake and Output 08/17/22 08/18/22 08/18/22 22:59 06:59 14:59 Intake Total 0 Balance 0 Intake: Oral 0 Other: Voiding Method Toilet # Voids 1 2 Weight 59.421 kg Results CBC & Chem 7: 08/18/22 05:47 08/18/22 05:47 Labs: Abnormal Lab Results - Last 24 Hours (Table) 08/17/22 08/18/22 Range/Units 12:29 05:47 Chloride 97 L (98-107) mmol/L BUN 23 H (7-17) mg/dL Creatinine 1.06 H (0.52-1.04) mg/dL Est GFR (CKD-EPI)NonAf 53.9 L (60.0-200.0) BUN/Creatinine Ratio 22.00 H (12.00-20.00) Ratio Glucose 109 H (74-99) mg/dL ALT 44 H (4-34) U/L Thrombosis Risk Factor Assmnt - Choose All That Apply Any of the Below Risk Factors Present?: No Each Risk Factor Represents 3 Points: Age 75 years or older Thrombosis Risk Factor Assessment Total Risk Factor Score: 3 Thrombosis Risk Factor Assessment Level: Moderate Risk
--- NOTE | 2022-08-21 18:14 | P.DS ---
Providers Date of admission: 08/17/22 14:05 Expected date of discharge: 08/18/22 Attending physician: Yamila Warren Consults: 08/17/22 14:01 Consult Physician Urgent Consulting Provider: Chet Klein Consult Reason/Comments: syncope, recurrent, ? cath Do you want consulting provider notified?: Yes Primary care physician: Yamila Warren Hospital Course: HISTORY OF PRESENT ILLNESS: This is a 77-year-old female with a previous medical history significant for hypertension and hypertensive cardio vascular disease, hyperlipidemia, history of osteophytes, history of malignant neoplasm of the colon status post partial colectomy, patient has been recently having some issues with uncontrolled hypertension for which she has been having multiple hospital admissions patient ended up going for battery of testing including a calcium score that was positive for CAD, then underwent myocardial perfusion imaging was negative for stress-induced ischemia however there was a possible balance three-vessel ischemia patient apparently was doing better after adjusting some of her hypertensive medication, came to the office for follow-up, she stated that she had passed out while she was sitting on her chair on Monday that was 2 days prior to her office visit, patient had an EKG did not show evidence of acute of normalities, but because of the presentation I've asked the patient to go to the ER for evaluation by cardiology since there is a possibility of a three-vessel balance ischemia that when her myocardial perfusion imaging was negative, patient was admitted to hospital with cardiology consultation. Patient underwent dobutamine stress echo that was negative for stress-induced ischemia, so far the Holter monitor in the hospital did not show evidence of acute arrhythmias, therefore the patient was cleared by cardiology to be discharged home she was taken off her amlodipine, as to continue her atenolol 50/12.5 mg half a tablet once every day, along with valsartan 160 mg orally once every day, monitor the patient blood pressure very closely, follow-up with me as an outpatient one week, follow-up with cardiology to be 30 day event monitor as well. Discharge diagnoses: 1. Syncope of unclear etiology ruled out for cardiac ischemia. 2. Cardiac arrhythmia cannot totally be excluded patient will have a 30 day event monitor as an outpatient. 3. Hypertension and hypertensive cardiovascular disease. 4. Hyperlipidemia. 5. Osteoarthritis. 7. Vitamin D deficiency. 8. Malignant neoplasm of the colon. Post sigmoidectomy colonoscopy is up-to-date January 2020 Patient Condition at Discharge: Good Plan - Discharge Summary New Discharge Prescriptions: No Action Atorvastatin Calcium 20 mg PO HS Atenolol/Chlorthalidone [Atenolol/Chlorthalidone 50-25] 0.5 each PO DAILY Valsartan [Diovan] 320 mg PO DAILY Aspirin 81 mg PO DAILY Cholecalciferol [Vitamin D3 (25 Mcg = 1000 Iu)] 100 mcg PO DAILY Multivitamin [Multivitamins Adult Gummies] Discharge Medication List Aspirin 81 mg PO DAILY 08/17/22 [History] Atenolol/Chlorthalidone [Atenolol/Chlorthalidone 50-25] 0.5 each PO DAILY 08/17/22 [History] Atorvastatin Calcium 20 mg PO HS 08/17/22 [History] Cholecalciferol [Vitamin D3 (25 Mcg = 1000 Iu)] 100 mcg PO DAILY 08/17/22 [History] Multivitamin [Multivitamins Adult Gummies] 08/17/22 [History] Valsartan [Diovan] 320 mg PO DAILY 08/17/22 [History] Follow up Appointment(s)/Referral(s): Rosa Coyle MD [STAFF PHYSICIAN] - 08/23/22 10:30 am Yamila Warren MD [Primary Care Provider] - 1-2 days Patient Instructions/Handouts: Syncope (DC), Holter Monitor (GEN) Discharge Disposition: HOME SELF-CARE
== END 2022-08-18 17:40 | disposition home or self-care (01) ==
LOC: EC 11:29 → 6NMEDSUR 14:05
PROVIDERS: ADMIT Internal Medicine; ATTEND Internal Medicine
DX: R55 Syncope and collapse (principal); I11.9 Hypertensive heart disease without heart failure; E78.2 Mixed hyperlipidemia; R00.1 Bradycardia, unspecified; M41.84 Other forms of scoliosis, thoracic region; R00.2 Palpitations; I25.10 Atherosclerotic heart disease of native coronary artery without angina pectoris; M25.70 Osteophyte, unspecified joint; E55.9 Vitamin D deficiency, unspecified; M19.90 Unspecified osteoarthritis, unspecified site; Z79.82 Long term (current) use of aspirin; Z79.899 Other long term (current) drug therapy; Z85.038 Personal history of other malignant neoplasm of large intestine; Z90.49 Acquired absence of other specified parts of digestive tract; Z98.49 Cataract extraction status, unspecified eye; Z98.890 Other specified postprocedural states; Z82.5 Family history of asthma and other chronic lower respiratory diseases; Z82.49 Family history of ischemic heart disease and other diseases of the circulatory system; Z84.89 Family history of other specified conditions; Z80.0 Family history of malignant neoplasm of digestive organs
CPT/HCPCS: 99285; 36415; 93005; 93306; 93351; 85379; 84439; 84481; 80053 ×2; 83735; 84443; 84484; 85025 ×2; 85610; 85730; 71046; 93880; G0378 ×2

== ENCOUNTER → 2023-10-27 | Outpatient (CLI) | payer MEDICARE ==
--- NOTE | 2023-10-29 10:00 | US ---
EXAMINATION TYPE: US kidneys/renal and bladder DATE OF EXAM: 10/27/2023 COMPARISON: CLINICAL INDICATION: Female, 78 years old with history of R94.4 ABNORMAL KIDNEY FUNCTION; EXAM MEASUREMENTS: Right Kidney: 9.1 x 3.2 x 3.6 cm Left Kidney: 8.7 x 4.6 x 4.4 cm Post Void Residual Volume: 0 mL Right Kidney: Inferior pole somewhat limited due to overlying bowel gas. Appears wnl Left Kidney: Appears wnl Bladder: Anechoic Bilateral Jets seen: No Normal Post Void Residual: yes There is no evidence for hydronephrosis at this point in time. No nephrolithiasis is seen. No nicolle s are identified. The urinary bladder is anechoic. Bilateral ureteral jets are seen. IMPRESSION: No significant abnormality appreciated.
--- NOTE | 2023-11-05 14:36 | MM ---
Reason for Exam: Screening (asymptomatic). Last screening mammogram was performed 11 month(s) ago. Patient History: Menarche at age 10. Patient has no children. Postmenopausal. Colorectal cancer, age 63. Estrogen for 5 years from age 48 until age 55. Progesterone for 5 years from age 48 until age 55. 2009, Benign Core Biopsy on the right side. Maternal cousin had breast cancer, age 65. Risk Values: Angie 5 year model risk: 2.4%. NCI Lifetime model risk: 4.1%. Prior Study Comparison: 03/03/2014 Bilateral Screening Mammogram, [facility]. 03/19/2015 Bilateral Screening Mammogram, [facility]. 07/05/2018 Bilateral Screening Mammogram, [facility] 07/12/2021 Bilateral Screening Mammogram, [facility]. 12/01/2022 Bilateral Screening Mammogram, [facility]. Tissue Density: There are scattered areas of fibroglandular density. Findings: Analyzed By CAD. The pattern is symmetrical. Pattern appears symmetrical and stable. No significant interval change. No suspicious groups of microcalcifications, spiculated or lobular masses, architectural distortion or other secondary signs of malignancy are mammographically apparent. Overall Assessment: Benign, BI-RAD 2 Management: Screening Mammogram of both breasts in 1 year. A negative mammogram report should not preclude additional follow up of suspicious palpable abnormalities. Patient should continue monthly self breast exam. A clinical breast exam by your physician is recommended on an annual basis and results should be correlated with mammographic findings. Note on Angie scores and lifetime risk: 1. A Angie score greater than 3% is considered moderate risk. If this is the case, consider specialist referral to assess eligibility for a risk reducing agent. 2. If overall lifetime risk for the development of breast cancer is 20% or higher, the patient may qualify for future screening with alternating mammogram and breast MRI. Electronically signed and approved by: Salbador Hernandez D.O. Radiologis
== END | disposition home or self-care (01) ==
LOC: RADUSWWP 13:54
PROVIDERS: ATTEND Internal Medicine
DX: Z12.31 Encounter for screening mammogram for malignant neoplasm of breast (principal); R94.4 Abnormal results of kidney function studies; R92.323 Mammographic fibroglandular density, bilateral breasts; Z78.0 Asymptomatic menopausal state; Z80.3 Family history of malignant neoplasm of breast
CPT/HCPCS: 76770; 77063; 77067